=== PATIENT | male | born 2000 | race Caucasian/White ===

== ENCOUNTER 2019-10-08 11:35 | Emergency (ER) | payer OTHER ==
[~2019-10-08] VITALS: Ht 172.7 cm; Wt 73.5 kg
[2019-10-08 11:42] VITALS: BP 123/63
--- NOTE | 2019-10-08 11:45 | NUR ---
PT TO BED 7 WITH STEADY GAIT
[2019-10-08] MEDS ORDERED: DEXAMETHASONE 10 MG/ML VIAL IM ONE (12:25)
[2019-10-08] MEDS ORDERED: CLINDAMYCIN 600 MG/4 ML VIAL IM ONE (12:25)
[2019-10-08] MEDS ORDERED: IBUPROFEN 800 MG TAB PO ONE (12:25)
[2019-10-08] MEDS ORDERED: NEOMYCIN/POLYMYXIN/BACITRACIN 0.9 GM/1 PKT TP ONE (12:25)
--- NOTE | 2019-10-08 14:00 | NUR ---
Patient discharged with v/s stable. Written and verbal after care instructions given and explained. Patient alert, oriented and verbalized understanding of instructions. Ambulatory with steady gait. All questions addressed prior to discharge. ID band removed. Patient advised to follow up with PMD. Rx of CLINDAMYCIN, BACTROBAN, MOTRIN given. Patient educated on indication of medication including possible reaction and side effects. Opportunity to ask questions provided and answered.
[2019-10-08 14:01] VITALS: BP 123/63
== END 2019-10-08 14:00 | disposition home or self-care (01) ==
LOC: MED 11:35
DX: L73.9 Follicular disorder, unspecified (principal)
CPT/HCPCS: 96372; 99283; J1100; J3490